=== PATIENT | male | born 1935 | race Caucasian/White ===

== ENCOUNTER 2018-08-31 12:33 | Inpatient (IN) | payer MEDICARE, OTHER ==
[2018-08-31] MEDS: LACTATED RINGER'S 1,000 ML IV (14:14)
[2018-08-31] MEDS ORDERED: PROPOFOL 20 ML (15:43)
[2018-08-31] MEDS ORDERED: ROCURONIUM 50 MG INJ ×2 (15:43→19:16)
[2018-08-31] MEDS ORDERED: CEFAZOLIN 1 GM INJ (15:43)
[2018-08-31] MEDS: D5W-0.45 NACL + KCL 20 MEQ 1,000 ML IV ×2 (15:43→21:39)
[2018-08-31] MEDS ORDERED: DEXAMETHASONE 4 MG/ML 5 ML INJ (15:44)
[2018-08-31] MEDS ORDERED: ONDANSETRON 4 MG INJ (15:44)
[2018-08-31] MEDS ORDERED: FENTAnyl 50 MCG/ML VIAL ×2 (15:44→18:33)
[2018-08-31] MEDS ORDERED: METOCLOPRAMIDE 10 MG INJ (15:44)
[2018-08-31] MEDS ORDERED: GELATIN SIZE 100 SPONGE (15:59)
[2018-08-31] MEDS ORDERED: METOCLOPRAMIDE 10 MG INJ IV (16:00)
[2018-08-31] MEDS ORDERED: HYDROmorphONE 1 MG/5 ML IV SYRINGE IV ×3 (16:00)
[2018-08-31] MEDS ORDERED: EPHEDrine 25 MG/5 ML SYG IV (16:00)
[2018-08-31] MEDS ORDERED: LABETALOL HCL 20MG INJ IV (16:00)
[2018-08-31] MEDS ORDERED: OXYCODONE/ACETAMINOPHEN (5/325) TAB PO (16:00)
[2018-08-31] MEDS ORDERED: DIPHENHYDRAMINE 25 MG CAP PO (16:00)
[2018-08-31] MEDS ORDERED: FENTAnyl 50 MCG/ML VIAL IV ×3 (16:00)
[2018-08-31] MEDS ORDERED: BISACODYL 10 MG SUPP PR (16:00)
[2018-08-31] MEDS ORDERED: CYCLOBENZAPRINE 10 MG TAB PO (16:00)
[2018-08-31] MEDS ORDERED: ONDANSETRON 4 MG INJ IV ×2 (16:00)
[2018-08-31] MEDS: CEFAZOLIN 1 GM/50 ML (PMX) 50 ML IVPB (16:00)
[2018-08-31] MEDS ORDERED: CEPASTAT LOZENGE MT (16:00)
[2018-08-31] MEDS ORDERED: AL HYDROX/MG HYDROX/SIMETH 30 ML CUP PO (16:00)
[2018-08-31] MEDS ORDERED: MEPERIDINE 25 MG INJ IV (16:00)
[2018-08-31] MEDS ORDERED: NALOXONE (0.4 MG/ML) INJ IV (16:00)
[2018-08-31] MEDS ORDERED: HYDROCODONE/APAP (10/325) TAB PO (16:00)
[2018-08-31] MEDS ORDERED: DIPHENHYDRAMINE 50 MG INJ IV ×2 (16:00)
[2018-08-31] MEDS ORDERED: hydrALAzine 20 MG INJ IV (16:00)
[2018-08-31] MEDS ORDERED: ACETAMINOPHEN 325 MG TAB PO (16:00)
[2018-08-31] MEDS: BUPIVACAINE 0.25%/EPI (SDV) 30 ML INJ (17:30)
[2018-08-31] MEDS ORDERED: HEPARIN 1000 UNITS/ML 10 ML INJ (17:32)
[2018-08-31] MEDS: THROMBIN 5000 UNIT VIAL (17:37)
[2018-08-31] MEDS: HEMOSTATIC MATRIX/ THROMBIN 1 EA SYG ZFS ×2 (17:37)
[2018-08-31] MEDS: POLYMYXIN/BACITRACIN 1L IRRIG (17:37)
[2018-08-31] MEDS: HEPARIN 1000 UNITS/ML 10 ML INJ IRR (17:49)
[2018-08-31] MEDS: CA CHLORIDE 10% 10 ML SYRINGE (18:00)
[2018-08-31] MEDS ORDERED: LABETALOL HCL 20MG INJ (18:29)
[2018-08-31] MEDS ORDERED: PHENYLephrine (100 MCG/ML) 10ML SYG (19:00)
[2018-08-31] MEDS ORDERED: EPHEDrine 25 MG/5 ML SYG (19:00)
[2018-08-31] MEDS ORDERED: SUGAMMADEX SODIUM 200 MG/2 ML VIAL IV (19:41)
[2018-08-31] MEDS ORDERED: hydrALAzine 20 MG INJ (19:43)
[2018-08-31] MEDS: DOCUSATE SODIUM 100 MG CAP PO ×2 (21:00→22:03)
[2018-08-31] MEDS: HYDROmorphONE 0.5 MG/0.5 ML SYG IV (21:34)
[2018-08-31] MEDS: HYDROCODONE/APAP (10/325) TAB PO (23:22)
[2018-09-01] MEDS: CEFAZOLIN 1 GM/50 ML (PMX) 50 ML IVPB ×2 (00:21→08:21)
[2018-09-01] MEDS: ATORVASTATIN 40 MG TAB PO (01:42)
[2018-09-01] MEDS: TAMSULOSIN (SR) 0.4 MG CAP PO (01:42)
[2018-09-01] MEDS: D5W-0.45 NACL + KCL 20 MEQ 1,000 ML IV ×2 (01:43→11:43)
[2018-09-01 06:08] LABS: ADD MAN DIFF? NO
[2018-09-01 06:18] LABS: ABNORMAL IP MESSAGE 1; HEMATOCRIT 33.9 % (42.0-52.0); HEMOGLOBIN 10.8 g/dl (14.0-18.0); LYMPHOCYTES # 0.4 10^3/ul (0.8-2.9); LYMPHOCYTES % 6.3 % (15.0-51.0); MEAN CORPUSCULAR HEMOGLOBIN 30.8 pg (29.0-33.0); MEAN CORPUSCULAR HGB CONC 31.9 g/dl (32.0-37.0); MEAN CORPUSCULAR VOLUME 96.6 fl (82.0-101.0); MEAN PLATELET VOLUME 11.2 fl (7.4-10.4); MONOCYTE # 0.1 10^3/ul (0.3-0.9); MONOCYTES % 2.1 % (0.0-11.0); NEUTROPHIL # 6.2 10^3/ul (1.6-7.5); NEUTROPHILS % 91.3 % (39.0-77.0); PLATELET COUNT 174 10^3/UL (140-415); POSITIVE DIFF @See below; RED BLOOD COUNT 3.51 10^6/ul (4.70-6.10); RED CELL DISTRIBUTION WIDTH 13.1 % (11.5-14.5)
[2018-09-01 06:18] LABS: WHITE BLOOD COUNT 6.8 10^3/ul (4.8-10.8)
[2018-09-01 07:02] LABS: ANION GAP 9 (5-13); BLOOD UREA NITROGEN 24 mg/dl (7-20); CALCIUM 7.7 mg/dl (8.4-10.2); CARBON DIOXIDE 22 mmol/L (21-31); CHLORIDE 107 mmol/L (97-110); CREATININE 1.01 mg/dl (0.61-1.24); GLUCOSE 225 mg/dl (70-220); MAGNESIUM 1.9 mg/dl (1.7-2.5); POTASSIUM 4.6 mmol/L (3.5-5.1); SODIUM 138 mmol/L (135-144)
[2018-09-01] MEDS: DOCUSATE SODIUM 100 MG CAP PO (08:21)
[2018-09-01] MEDS: HYDROCODONE/APAP (10/325) TAB PO ×2 (08:26→13:05)
[2018-09-01] MEDS: LISINOPRIL 5 MG TAB PO (08:27)
[2018-09-01] MEDS ORDERED: ROSUVASTATIN CALCIUM ORAL (09:00)
== END 2018-09-01 13:23 | disposition home or self-care (01) | DRG 520 ==
LOC: REC 12:33 → MS1 21:09
PROC: 01NB0ZZ Release Lumbar Nerve, Open Approach (ICD-10-PCS; principal; 2018-08-31 16:00)
PROC: 00BT0ZZ Excision of Spinal Meninges, Open Approach (ICD-10-PCS; 2018-08-31 16:00)
PROC: 01NR0ZZ Release Sacral Nerve, Open Approach (ICD-10-PCS; 2018-08-31 16:00)
DX: M48.061 Spinal stenosis, lumbar region without neurogenic claudication (principal); M54.16 Radiculopathy, lumbar region; M54.17 Radiculopathy, lumbosacral region; M48.07 Spinal stenosis, lumbosacral region; G96.19 Other disorders of meninges, not elsewhere classified; E78.5 Hyperlipidemia, unspecified
CPT/HCPCS: 72020; 80048; 83735; 85025; 86999; 88304; 97110; 97116; 97161